=== PATIENT | female | born 1960 | race African-American/Black ===

== ENCOUNTER 2016-09-19 12:08 | Emergency (ER) | payer SELFPAY ==
[~2016-09-19 12:08] MED LIST: HYZA50TA2 PO
[2016-09-19 12:10] VITALS: BP 166/86; PULSE 78; RESP 20; TEMP 98.1; O2SAT 99
== END 2016-09-19 15:30 | disposition left against medical advice (07) ==
LOC: NED 12:08
DX: R51 Headache (principal); Z53.21 Procedure and treatment not carried out due to patient leaving prior to being seen by health care provider
CPT/HCPCS: 99281

== ENCOUNTER 2016-11-23 16:54 | Emergency (ER) | payer OTHER ==
[~2016-11-23] VITALS: Ht 167.6 cm; Wt 90.0 kg
[2016-11-23 16:57] VITALS: BP 180/89; PULSE 78; RESP 14; TEMP 98.1; O2SAT 97
[2016-11-23] MEDS ORDERED: CYCL1TAB29 PO (17:46)
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
== END 2016-11-23 17:59 | disposition home or self-care (01) ==
LOC: NEPK 16:54
DX: S39.012A Strain of muscle, fascia and tendon of lower back, initial encounter (principal); V43.52XA Car driver injured in collision with other type car in traffic accident, initial encounter; Y92.414 Local residential or business street as the place of occurrence of the external cause; I10 Essential (primary) hypertension
CPT/HCPCS: 99283